=== PATIENT | female | born 1955 | race Caucasian/White ===

== ENCOUNTER → 2018-06-10 | Outpatient (CLI) | payer OTHER ==
[~2018-06-10] MED LIST: BUPXL150 PO; CELE-1 PO; DIP25 PO; NITR-105 PO; ONDA8TAB94 PO; TIZA-1 PO; TIZA100P2 MC; VITAMINS
== END ==
LOC: RAD 13:35
PROVIDERS: ATTEND Nurse Practitioner Family
DX: Z02.9 Encounter for administrative examinations, unspecified (principal)

== ENCOUNTER → 2018-06-10 | Outpatient (CLI) | payer OTHER ==
--- NOTE | 2018-06-10 15:08 | RADIOLOGY IMAGING REPORT ---
FACILITY: [facility] - [place] PATIENT NAME: Richie Aguayo : 1955 MR: [id number] V: [id number] EXAM DATE: ORDERING PHYSICIAN: ALFREDO PEÑA TECHNOLOGIST: Location: [facility] Patient: Richie Aguayo : 1955 Visit/Account:[id number] Date of Sevice: 06/10/2018 Exam type: L-SPINE >4 VIEWS History: Ankylosing spondylitis follow-up Comparison: July 20, 2014. Findings: There are five nonrib-bearing lumbar-type vertebral bodies present. Is a gentle levoconvex curvature the appears more exaggerated when compared the prior study and could be positional in nature. There appears to be osteopenia. Moderate to severe disc space narrowing again noted L5-S1 and an 8 mm ant erior listhesis of L5 with respect S1 secondary to bilateral pars defects at L5 again seen. No evide nce of acute fractures identified IMPRESSION: 1. Moderate severe disc space narrowing at L5-S1 and an 8mm anterior listhesis of L5 with respect S1 secondary to bilateral pars defects at L5 appears similar to the prior study. Report Dictated By: Kamila Barrett MD at 06/10/2018 3:01 PM Report E-Signed By: Kamila Barrett MD at 06/10/2018 3:04 PM WSN:[email or web address]
--- NOTE | 2018-06-10 15:12 | RADIOLOGY IMAGING REPORT ---
FACILITY: [facility] PATIENT NAME: GEOVANNA GANDARA : [id number] MR: [id number] V: [id number] EXAM DATE: [id number] ORDERING PHYSICIAN: ALFREDO PEÑA TECHNOLOGIST: Teressa Lopez PROCEDURE:BILATERAL DIGITAL SCREENING MAMMOGRAM WITH CAD ASSISTED INTERPRETATION & 3D TOMOSYNTHESIS COMPARISON:Prior mammograms 07/13/14, 04/27/13, 02/19/12. INDICATIONS:SCREENING FINDINGS: There are scattered fibroglandular densities seen throughout the breasts. The parenchymal pattern has remained stable allowing for difference in mammographic technique & patient positioning. DIAGNOSTIC CATEGORY 1--NEGATIVE. RECOMMENDATIONS: ROUTINE MAMMOGRAM AND CLINICAL EVALUATION. IMPRESSION: BIRADS 1: Negative. No significant abnormality is seen. Dictated by: Kamila Barrett M.D. on 06/10/2018 at 14:34 Transcribed by: JARROD on 06/10/2018 at 14:39 Approved by: Kamila Barrett M.D. on 06/10/2018 at 15:11 [facility]
--- NOTE | 2018-06-10 15:19 | RADIOLOGY IMAGING REPORT ---
[place] [facility] [place] NAME: Richie Aguayo : 1955 MR: [id number] V: [id number] EXAM DATE: ORDERING PHYSICIAN: ALFREDO PEÑA TECHNOLOGIST: Location: [facility] Patient: Richie Aguayo : 1955 Visit/Account:[id number] Date of Sevice: 06/10/2018 Exam type: XR THORACIC SPINE 3 V History: Ankylosing spondylitis follow-up Comparison: July 20, 2014. Findings: There is a gentle dextroconvex scoliosis in the midthoracic spine appears more exaggerated when richard red to the prior study. Mild multilevel spondylotic changes of the thoracic spine are again seen roland earing similar to the prior study. There is a slight exaggeration of the normal thoracic kyphosis in the upper thoracic spine although this also appears similar. No gross evidence of acute fractures o r subluxations IMPRESSION: 1. Gentle dextroconvex scoliosis of the midthoracic spine appears slightly more exaggerated when com pared the prior study Mild multilevel spondylotic changes of the thoracic spine appear similar to the prior study There is a slight exaggeration of normal thoracic kyphosis in the upper thoracic spine which also roland ears similar Report Dictated By: Kamila Barrett MD at 06/10/2018 3:04 PM Report E-Signed By: Kamila Barrett MD at 06/10/2018 3:15 PM WSN:[email or web address]
--- NOTE | 2018-06-10 15:21 | RADIOLOGY IMAGING REPORT ---
FACILITY: [facility] PATIENT NAME: Richie Aguayo : 1955 MR: [id number] V: [id number] EXAM DATE: ORDERING PHYSICIAN: ALFREDO PE[place]A [place]CHN[place] [facility] [place] : 1955 Visit/Account:[id number] Date of Sevice: 06/10/2018 Exam type: CERVICAL SPINE MIN 4 VIEW History: Ankylosing spondylitis follow-up Comparison: July 20, 2014. Findings: Five views of the cervical spine were submitted. There is no evidence of acute fractures or subluxat ions. The neural foramina appear widely patent bilaterally. There is no evidence of prevertebral so ft tissue swelling. IMPRESSION: 1. Unremarkable cervical spine series Report Dictated By: Kamila Barrett MD at 06/10/2018 3:15 PM Report E-Signed By: Kamila Barrett MD at 06/10/2018 3:17 PM WSN:[email or web address]
== END ==
LOC: MAMO 05-18 02:37
PROVIDERS: ATTEND Nurse Practitioner Family
DX: Z12.31 Encounter for screening mammogram for malignant neoplasm of breast (principal); M48.07 Spinal stenosis, lumbosacral region; M41.84 Other forms of scoliosis, thoracic region; M47.894 Other spondylosis, thoracic region; M40.294 Other kyphosis, thoracic region
CPT/HCPCS: 72050; 72072; 72120; 77063; 77067

== ENCOUNTER → 2018-07-11 | Outpatient (CLI) | payer OTHER ==
--- NOTE | 2018-07-11 09:56 | RADIOLOGY IMAGING REPORT ---
FACILITY: [facility] PATIENT NAME: Richie Aguayo : 1955 MR: [id number] V: [id number] EXAM DATE: ORDERING PHYSICIAN: ALFREDO PEÑA TECHNOLOGIST: Location: [facility] [place] Patient: Richie Aguayo : 1955 Visit/Account:[id number] Date of Sevice: 07/11/2018 MR KNEE RT W/O CONTRAST DATE: 07/11/2018 8:00 AM TECHNIQUE: Multisequence, multiplanar MR imaging was performed of the knee without intravenous contra st INDICATION: Right knee injury COMPARISON: Knee radiographs May 04, 2018 FINDINGS: MENISCI: The menisci are intact. Incidental note is made of a meniscofemoral ligament of John. CRUCIATES AND COLLATERALS: The ACL is normal. Signal is mildly increased near the femoral attachment of the PCL, but the ligament is intact. Normal MCL and lateral collateral ligament complex. ARTICULAR CARTILAGE AND OSSEOUS STRUCTURES: No fracture or marrow replacing lesion. Medial Compartment: No focal cartilage defect. Lateral Compartment: No focal cartilage defect. Patellofemoral Compartment: The quadriceps and patellar tendons are intact. EXTENSOR MECHANISM: The quadriceps and patellar tendons are intact as are the patellar retinacula. MISCELLANEOUS: No effusion. No Brennan's cyst. Muscle bulk and signal are normal within the imaged vadim on. IMPRESSION: 1. Low-grade sprain of the PCL. The cruciate and collateral ligaments are intact. 2. No meniscal tear. 3. Otherwise normal. Report Dictated By: José Miguel Coronado MD at 07/11/2018 9:39 AM Report E-Signed By: José Miguel Coronado MD at 07/11/2018 9:52 AM WSN:[email or web address]
== END ==
LOC: MRI 00:14
PROVIDERS: ATTEND Nurse Practitioner Family
DX: S76.111A Strain of right quadriceps muscle, fascia and tendon, initial encounter (principal)